=== PATIENT | female | born 1960 | race Caucasian/White ===

== ENCOUNTER 2019-09-13 17:55 | Observation (INO) | payer MEDICARE, MEDICAID ==
[2019-09-13] MEDS ORDERED: Sodium Chloride 0.9% 10 ML Syringe FLUSH PRN (18:02)
[2019-09-13] MEDS ORDERED: Levalbuterol HCl 1.25 MG/3 ML Neb NEB PRN (18:19)
[2019-09-13] MEDS ORDERED: Atropine 0.1 MG/ML 10 ML Syringe IVPUSH PRN (18:21)
[2019-09-13] MEDS ORDERED: Lidocaine 2% 100 MG/5 ML Syringe IVPUSH PRN (18:21)
[2019-09-13] MEDS ORDERED: Nitroglycerin 0.4 MG Tab.SL SL PRN (18:21)
[2019-09-13] MEDS ORDERED: EPINEPHrine 1:10,000 1 MG/10 ML Syringe IVPUSH PRN (18:21)
[2019-09-13] MEDS ORDERED: Rivaroxaban 10 MG Tab PO SCH (18:30)
[2019-09-13] MEDS ORDERED: Nystatin Crm 15 GM Tube TOP PRN (18:55)
[2019-09-13] MEDS ORDERED: Omeprazole 20 MG Cap.CR PO SCH (19:00)
[2019-09-13] MEDS: Rivaroxaban 10 MG Tab PO SCH (19:32)
[2019-09-13] MEDS: Gabapentin 100 MG Cap PO SCH (19:33)
[2019-09-13] MEDS: Metoprolol Succinate 50 MG Tab.ER PO SCH (19:33)
[2019-09-13] MEDS: atorvaSTATin 40 MG Tab PO SCH (20:55)
[2019-09-13] MEDS: Baclofen 10 MG Tab PO SCH (20:55)
[2019-09-13] MEDS: Sertraline 50 MG Tab PO SCH (20:55)
[2019-09-13] MEDS: Melatonin 3 MG Tab PO PRN (20:56)
[2019-09-13] MEDS: Albuterol 8 GM Inhaler INH PRN (21:17)
[2019-09-13] MEDS ORDERED: Magnesium Oxide 500 MG Tab PO ONE (21:47)
[2019-09-14] MEDS: Albuterol 8 GM Inhaler INH PRN (06:33)
[2019-09-14] MEDS: Gabapentin 100 MG Cap PO SCH ×2 (07:23→17:38)
[2019-09-14] MEDS: Omeprazole 20 MG Cap.CR PO SCH (07:23)
[2019-09-14 07:57] LABS: ANION GAP 19.7 mmol/L (5-15)
[2019-09-14] MEDS: Baclofen 10 MG Tab PO SCH ×2 (08:16→21:05)
[2019-09-14] MEDS ORDERED: Nitrofurantoin Macrocrystal 50 MG Cap PO SCH (09:00)
--- NOTE | 2019-09-14 11:09 | PCM.PN ---
- General Info Date of Service: 09/14/19 Functional Status: Reports: Tolerating Diet, Incentive Spirometry. Denies: Ambulating, New Symptoms - Review of Systems General: Denies: Fever, Weakness, Fatigue HEENT: Denies: Sore Throat Pulmonary: Reports: Shortness of Breath, Cough. Denies: Sputum Cardiovascular: Reports: Dyspnea on Exertion. Denies: Palpitations, Orthopnea, PND Gastrointestinal: Reports: No Symptoms Genitourinary: Reports: Flank Pain. Denies: Dysuria, Frequency, Burning Musculoskeletal: Reports: No Symptoms Skin: Reports: No Symptoms Neurological: Reports: No Symptoms Psychiatric: Reports: No Symptoms - Patient Data Vitals - Most Recent: Last Vital Signs Temp 97.2 F 09/14/19 06:53 Pulse 61 09/14/19 06:53 Resp 20 09/14/19 06:53 BP 109/73 09/14/19 06:53 Pulse Ox 94 L 09/14/19 06:53 Weight - Most Recent: 229 lb 14.4 oz I&O - Last 24 Hours: Intake & Output 09/13/19 09/14/19 09/14/19 22:59 06:59 14:59 Intake Total 400 250 Output Total 200 Balance 200 250 Lab Results Last 24 Hours: Laboratory Results - last 24 hr 09/13/19 09/13/19 09/13/19 Range/Units 17:45 17:45 20:05 WBC (5.00-10.00) 10^3/uL RBC (3.80-5.50) 10^6/uL Hgb (12.0-16.0) g/dL Hct (37.0-47.0) % MCV (82.0-92.0) fL MCH (27.0-31.0) pg MCHC (32.0-36.0) g/dL RDW (11.5-14.5) % Plt Count (150-400) 10^3/uL MPV (7.4-10.4) fL Immature Gran % (Auto) (0.0-5.0) % Neut % (Auto) (50.0-70.0) % Lymph % (Auto) (20.0-40.0) % [place] % (Auto) (2.0-8.0) % Eos % (Auto) (1.0-3.0) % Baso % (Auto) (0.0-1.0) % Immature Gran # (Auto) (0.00-0.50) 10^3/uL Neut # (Auto) (2.50-7.00) 10^3/uL Lymph # (Auto) (1.00-4.00) 10^3/uL [place] # (Auto) (0.10-0.80) 10^3/uL Eos # (Auto) (0.10-0.30) 10^3/uL Baso # (Auto) (0.00-0.10) 10^3/uL Sodium (136-145) mmol/L Potassium (3.3-5.3) mmol/L Chloride (98-115) mmol/L Carbon Dioxide (21.0-32.0) mmol/L Anion Gap (5-15) mmol/L BUN (6-25) mg/dL Creatinine (0.51-1.17) mg/dL Est Cr Clr Drug Dosing mL/min Estimated GFR (MDRD) mL/min Glucose (75 - 99) mg/dL Calcium (8.7-10.3) mg/dL Magnesium 1.4 L (1.8-2.4) mg/dL TSH, Ultra Sensitive 2.690 (0.340-4.820) uIU/mL Specimen Type Urinvoid Urine Color Yellow (YELLOW) Urine Appearance Turbid H (CLEAR) Urine pH 6.0 (5.0-9.0) Ur Specific Turner 1.020 (1.005-1.030) Urine Protein Trace H (NEGATIVE) mg/dL Urine Glucose (UA) Negative (NEGATIVE) mg/dL Urine Ketones Negative (NEGATIVE) mg/dL Urine Occult Blood Negative (NEGATIVE) Urine Nitrite Negative (NEGATIVE) Urine Bilirubin Negative (NEGATIVE) Urine Urobilinogen 0.2 (0.2-1.0) E.U./dL Ur Leukocyte Esterase Small H (NEGATIVE) Urine RBC 0-5 (0-5) /HPF Urine WBC 10-20 H (0-5) /HPF Ur Epithelial Cells Many H /LPF Urine Bacteria Moderate H (NONE TO FEW) /HPF 09/14/19 09/14/19 Range/Units 07:10 07:10 WBC 15.71 H (5.00-10.00) 10^3/uL RBC 3.56 L (3.80-5.50) 10^6/uL Hgb 11.1 L (12.0-16.0) g/dL Hct 33.7 L (37.0-47.0) % MCV 94.7 H (82.0-92.0) fL MCH 31.2 H (27.0-31.0) pg MCHC 32.9 (32.0-36.0) g/dL RDW 12.9 (11.5-14.5) % Plt Count 251 (150-400) 10^3/uL MPV 11.1 H (7.4-10.4) fL Immature Gran % (Auto) 0.4 (0.0-5.0) % Neut % (Auto) 76.2 H (50.0-70.0) % Lymph % (Auto) 14.1 L (20.0-40.0) % [place] % (Auto) 8.3 H (2.0-8.0) % Eos % (Auto) 0.7 L (1.0-3.0) % Baso % (Auto) 0.3 (0.0-1.0) % Immature Gran # (Auto) 0.06 (0.00-0.50) 10^3/uL Neut # (Auto) 11.97 H (2.50-7.00) 10^3/uL Lymph # (Auto) 2.22 (1.00-4.00) 10^3/uL [place] # (Auto) 1.31 H (0.10-0.80) 10^3/uL Eos # (Auto) 0.11 (0.10-0.30) 10^3/uL Baso # (Auto) 0.04 (0.00-0.10) 10^3/uL Sodium 144 (136-145) mmol/L Potassium 4.1 (3.3-5.3) mmol/L Chloride 110 (98-115) mmol/L Carbon Dioxide 18.4 L (21.0-32.0) mmol/L Anion Gap 19.7 H (5-15) mmol/L BUN 40 H (6-25) mg/dL Creatinine 1.46 H (0.51-1.17) mg/dL Est Cr Clr Drug Dosing 34.94 mL/min Estimated GFR (MDRD) 36 mL/min Glucose 96 (75 - 99) mg/dL Calcium 8.5 L (8.7-10.3) mg/dL Magnesium (1.8-2.4) mg/dL TSH, Ultra Sensitive (0.340-4.820) uIU/mL Specimen Type Urine Color (YELLOW) Urine Appearance (CLEAR) Urine pH (5.0-9.0) Ur Specific Turner (1.005-1.030) Urine Protein (NEGATIVE) mg/dL Urine Glucose (UA) (NEGATIVE) mg/dL Urine Ketones (NEGATIVE) mg/dL Urine Occult Blood (NEGATIVE) Urine Nitrite (NEGATIVE) Urine Bilirubin (NEGATIVE) Urine Urobilinogen (0.2-1.0) E.U./dL Ur Leukocyte Esterase (NEGATIVE) Urine RBC (0-5) /HPF Urine WBC (0-5) /HPF Ur Epithelial Cells /LPF Urine Bacteria (NONE TO FEW) /HPF Med Orders - Current: Current Medications Acetaminophen (Tylenol Extra Strength) 1,000 mg PO DAILY PRN PRN Reason: Pain Albuterol (Ventolin Hfa) 0 gm INH Q4H PRN PRN Reason: Shortness of Breath Last Admin: 09/14/19 06:33 Dose: 2 puff Atorvastatin Calcium (Lipitor) 40 mg PO BEDTIME [facility] Last Admin: 09/13/19 20:55 Dose: 40 mg Atropine Sulfate (Atropine 0.1 Mg/Ml) 0 mg IVPUSH ASDIRECTED PRN PRN Reason: Heart. Baclofen (Lioresal) 10 mg PO BID [facility] Last Admin: 09/14/19 08:16 Dose: 10 mg Dipyridamole (Dipyridamole) 75 mg PO TID [facility] Last Admin: 09/14/19 08:16 Dose: 75 mg Epinephrine HCl (Epinephrine 1:10,000) 1 mg IVPUSH ASDIRECTED PRN PRN Reason: Heart. Gabapentin (Neurontin) 100 mg PO 0800 [facility] Last Admin: 09/14/19 07:23 Dose: 100 mg Gabapentin (Neurontin) 200 mg PO 1800 [facility] Last Admin: 09/13/19 19:33 Dose: 200 mg Levalbuterol HCl (Xopenex) 1.25 mg NEB TID PRN PRN Reason: Cough Lidocaine HCl (Xylocaine 2%) 0 mg IVPUSH ASDIRECTED PRN PRN Reason: Heart. Melatonin (Melatonin) 3 mg PO BEDTIME PRN PRN Reason: Insomnia Last Admin: 09/13/19 20:56 Dose: 3 mg Metoprolol Succinate (Toprol Xl) 50 mg PO DAILY@1700 [facility] Nitrofurantoin Macrocrystals (Macrodantin) 50 mg PO Q2D [facility] Last Admin: 09/14/19 10:08 Dose: 50 mg Nitroglycerin (Nitrostat) 0.4 mg SL ASDIRECTED PRN PRN Reason: Heart. Nystatin (Nystatin Crm) 0 gm TOP BID PRN PRN Reason: Itching Last Admin: 09/13/19 21:16 Dose: 1 applic Omeprazole (Omeprazole) 20 mg PO ACBREAKFAST [facility] Last Admin: 09/14/19 07:23 Dose: 20 mg Rivaroxaban (Xarelto) 20 mg PO DAILY@1800 [facility] Last Admin: 09/13/19 19:32 Dose: 20 mg Sertraline HCl (Zoloft) 50 mg PO BEDTIME [facility] Last Admin: 09/13/19 20:55 Dose: 50 mg Sodium Chloride (Saline Flush) 10 ml FLUSH Q8HR PRN PRN Reason: keep vein open Discontinued Medications Magnesium Oxide (Magnesium Oxide) 500 mg PO ONETIME ONE Stop: 09/13/19 21:48 Last Admin: 09/13/19 22:38 Dose: 500 mg Metoprolol Succinate (Toprol Xl) 50 mg PO DAILY [facility] Last Admin: 09/13/19 19:33 Dose: 50 mg Omeprazole (Omeprazole) 20 mg PO BIDAC [facility] Last Admin: 09/13/19 19:33 Dose: 20 mg - Exam Quality Assessment: DVT Prophylaxis. No: Supplemental Oxygen General: Alert, Oriented, Cooperative, No Acute Distress Neck: No JVD Lungs: Rhonchi, Wheezing Cardiovascular: Regular Rate, Regular Rhythm, No Murmurs. No: Irregular Rhythm , Tachycardia, Gallops GI/Abdominal Exam: No: Distended Back Exam: No: CVA Tenderness (L), CVA Tenderness (R) Extremities: No Pedal Edema, Normal Capillary Refill Skin: Dry Neurological: No New Focal Deficit Psy/Mental Status: Alert, Normal Affect Sepsis Event Note - Evaluation Sepsis Screening Result: No Definite Risk - Focused Exam Vital Signs: Vital Signs Temp Pulse Resp BP BP Pulse Ox Pulse Ox 03/04/20 06:53 97.2 F 61 20 109/73 94 L 09/14/19 06:33 68 95 09/14/19 06:31 95 09/14/19 03:00 97.1 F 68 20 113/67 94 L 09/13/19 22:50 97.2 F 71 20 98/65 94 L Date Exam was Performed: 09/14/19 Time Exam was Performed: 15:10 - Problem List Review Problem List Initiated/Reviewed/Updated: Yes - My Orders Last 24 Hours: My Active Orders 09/13/19 19:00 Rivaroxaban [Xarelto] 20 mg PO DAILY@1800 09/13/19 21:05 CULTURE URINE [RM] Routine 09/14/19 07:00 RT Incentive Spirometry [RC] Q1HWA 09/14/19 07:15 Communication Order [RC] 0900,2100 09/14/19 17:00 Metoprolol Succinate [Toprol XL] 50 mg PO DAILY@1700 - Plan Plan:: History summary 59-year-old female admitted to the hospital by Mary Martinez NP outlying [facility] due to new onset atrial fibrillation with RVR. She was following up from a pneumonia that was diagnosed on 09/06/2019 she had completed a course of antibiotics of doxycycline however she had little improvement in her symptoms. When she was evaluated at the [facility] she had shortness of breath, however no fever. Found to be in atrial fibrillation with RVR ~140-160s. Was admitted for initial rate control and anticoagulation therapy. 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 She is on prophylactic nitrofurantoin chronic UTIs Clinic clinical work-up/findings/hospital course Soon after admission and prior to any intervention patient spontaneously converted to sinus rhythm, changed orders to Toprol 50 mg p.o. daily, overnight tele reviewed HR 60's few PAC/PVCs. Magesium mildly sub-therapeutic, magnesium oxide given, factor Xa inhibitor started on admission Primary hospital problems --Atrial fibrillation, paroxysmal, CHADS-VASC 4/5 with concomitant modifiable risks of HTN, obesity, infection, smoking, along with possible HF as contibutory ; NSR now, Toprol 50mg daily. Plan to send to cardiology as she is good candidate for rhythm control strategy. --Hypomagnesiumia, likely PPI induced, reduce PPI to QOD on discharge, p.o. magnesium supplement --Pneumonia, CAP, completed abx course; will review o/p cxr from [place] yesterday --Tobacco dependency, current smoker, ~20 carlota/year; refusing replacment, resp c/ s for cessation counseling. --Possible cardiac myopathy due to edema, sob, equivoccal BNP levels however will consider underylying pulm dz to account for bnp Chronic/stable problems --HTN, taking lisinopril 5mg daily. --HLD, Statin --GERD: PPI --Localized edema in the left lower extremity and takes spiranolactone 25mg daily --Low back and chronic SI joint pain: Baclofen 10mg twice daily, gabapentin 100mg in the AM and 200mg in the PM, acetaminophen 1000mg daily --Depression, SSRI --UTI prophylaxis: Nitrofurantoin 50mg every other day Disposition/overall plan --Continue observation, telemetry,--ambulate aggressively in halls today at least 4x, document HR burden/tolerance --Continue Xa inhibitor--and on discharge. Educate Patient hospital video/ education regarding high risk medication --EKG for any a flutter A. fib breakthrough --Respiratory therapy for smoking cessation education, --Urine culture Discharge planning --Discussed with patient regarding very good candidate for catheter-based AV ablation with subsequent/AICD placement for A. fib cure especially if ECHO demonstrates myopathy. However at this time will need intense ongoing PCP management to reduce Afib, modifiable risk factors i.e. obesity, heart failure, infection, smoking, HTN, --Nursing staff: Education regarding A. fib, high risk medications --Resp therapy to provide smoking cessation counselling. --Ambulate on floor 4x today notify provider for any tachycardia/A. fib --Echocardiogram as outpatient, --Cardiology/EP consultation outpatient. NURSING, Please keep reiterating my discussion with her during this hospitalization re cardiology referral to have initial discussion regarding afib and treatment options. Cardiology can assist with risk management stratification and to develop [id number] relationship is important for her as she may not be conducive to ablation at first visit.
[2019-09-14] MEDS: Metoprolol Succinate 50 MG Tab.ER PO SCH ×2 (11:17→16:55)
[2019-09-14] MEDS: Magnesium Oxide 500 MG Tab PO SCH ×2 (16:09→21:05)
[2019-09-14] MEDS: Levalbuterol HCl 1.25 MG/3 ML Neb NEB SCH (16:12)
[2019-09-14] MEDS: Acetaminophen 500 MG Tab PO PRN (16:55)
[2019-09-14] MEDS: Rivaroxaban 10 MG Tab PO SCH (17:38)
[2019-09-14] MEDS: atorvaSTATin 40 MG Tab PO SCH (21:05)
[2019-09-14] MEDS: Sertraline 50 MG Tab PO SCH (21:05)
[2019-09-14] MEDS: Melatonin 3 MG Tab PO PRN (21:05)
[2019-09-15] MEDS: Albuterol 8 GM Inhaler INH PRN (06:57)
[2019-09-15] MEDS: Gabapentin 100 MG Cap PO SCH ×2 (07:38→17:21)
[2019-09-15] MEDS: Omeprazole 20 MG Cap.CR PO SCH (07:38)
[2019-09-15] MEDS: Baclofen 10 MG Tab PO SCH ×2 (08:07→22:45)
[2019-09-15] MEDS: Magnesium Oxide 500 MG Tab PO SCH ×2 (08:09→22:52)
--- NOTE | 2019-09-15 09:33 | PCM.PN ---
- General Info Date of Service: 09/15/19 Functional Status: Reports: Pain Controlled, Tolerating Diet, Ambulating, Incentive Spirometry (1000 cc ICS Mk demonstration) - Review of Systems General: Denies: Fever, Weakness, Fatigue, Malaise, Chills Pulmonary: Reports: Cough, Wheezing (Mild wheezing however nearing her morning baseline). Denies: Sputum Cardiovascular: Denies: Dyspnea on Exertion, Edema Gastrointestinal: Denies: Decreased Appetite Genitourinary: Denies: Dysuria Skin: Reports: No Symptoms Neurological: Reports: Pre-Existing Deficit. Denies: Gait Disturbance Psychiatric: Denies: Confusion, Agitation, Cravings (Denies any tobacco craving) - Patient Data Vitals - Most Recent: Last Vital Signs Temp 97.0 F 09/15/19 07:00 Pulse 67 09/15/19 07:00 Resp 20 09/15/19 07:00 BP 120/76 09/15/19 07:00 Pulse Ox 98 09/15/19 07:00 Weight - Most Recent: 229 lb 14.4 oz I&O - Last 24 Hours: Intake & Output 09/14/19 09/15/19 09/15/19 22:59 06:59 14:59 Intake Total 900 200 Balance 900 200 Lab Results Last 24 Hours: Laboratory Results - last 24 hr 09/13/19 09/13/19 09/15/19 Range/Units 17:30 17:30 09:05 WBC 15.18 H (5.00-10.00) 10^3/uL RBC 3.81 (3.80-5.50) 10^6/uL Hgb 11.7 L (12.0-16.0) g/dL Hct 36.2 L (37.0-47.0) % MCV 95.0 H (82.0-92.0) fL MCH 30.7 (27.0-31.0) pg MCHC 32.3 (32.0-36.0) g/dL RDW 12.9 (11.5-14.5) % Plt Count 284 (150-400) 10^3/uL MPV 10.8 H (7.4-10.4) fL Immature Gran % (Auto) 0.4 (0.0-5.0) % Neut % (Auto) 81.5 H (50.0-70.0) % Lymph % (Auto) 11.8 L (20.0-40.0) % [place] % (Auto) 5.5 (2.0-8.0) % Eos % (Auto) 0.5 L (1.0-3.0) % Baso % (Auto) 0.3 (0.0-1.0) % Immature Gran # (Auto) 0.06 (0.00-0.50) 10^3/uL Neut # (Auto) 12.38 H (2.50-7.00) 10^3/uL Lymph # (Auto) 1.79 (1.00-4.00) 10^3/uL [place] # (Auto) 0.83 H (0.10-0.80) 10^3/uL Eos # (Auto) 0.08 L (0.10-0.30) 10^3/uL Baso # (Auto) 0.04 (0.00-0.10) 10^3/uL Magnesium 1.4 L (1.8-2.4) mg/dL TSH, Ultra Sensitive 2.690 (0.340-4.820) uIU/mL Med Orders - Current: Current Medications Acetaminophen (Tylenol Extra Strength) 1,000 mg PO DAILY PRN PRN Reason: Pain Last Admin: 09/14/19 16:55 Dose: 1,000 mg Albuterol (Ventolin Hfa) 0 gm INH Q4H PRN PRN Reason: Shortness of Breath Last Admin: 09/15/19 06:57 Dose: 2 puff Atorvastatin Calcium (Lipitor) 40 mg PO BEDTIME [facility] Last Admin: 09/14/19 21:05 Dose: 40 mg Atropine Sulfate (Atropine 0.1 Mg/Ml) 0 mg IVPUSH ASDIRECTED PRN PRN Reason: Heart. Baclofen (Lioresal) 10 mg PO BID [facility] Last Admin: 09/15/19 08:07 Dose: 10 mg Dipyridamole (Dipyridamole) 75 mg PO TID [facility] Last Admin: 09/15/19 08:07 Dose: 75 mg Epinephrine HCl (Epinephrine 1:10,000) 1 mg IVPUSH ASDIRECTED PRN PRN Reason: Heart. Gabapentin (Neurontin) 100 mg PO 0800 [facility] Last Admin: 09/15/19 07:38 Dose: 100 mg Gabapentin (Neurontin) 200 mg PO 1800 [facility] Last Admin: 09/14/19 17:38 Dose: 200 mg Levalbuterol HCl (Xopenex) 1.25 mg NEB TID [facility] Last Admin: 09/14/19 16:12 Dose: 1.25 mg Lidocaine HCl (Xylocaine 2%) 0 mg IVPUSH ASDIRECTED PRN PRN Reason: Heart. Magnesium Oxide (Magnesium Oxide) 500 mg PO BID [facility] Last Admin: 09/15/19 08:09 Dose: 500 mg Melatonin (Melatonin) 3 mg PO BEDTIME PRN PRN Reason: Insomnia Last Admin: 09/14/19 21:05 Dose: 3 mg Metoprolol Succinate (Toprol Xl) 50 mg PO DAILY@1700 [facility] Last Admin: 09/14/19 16:55 Dose: 50 mg Nitrofurantoin Macrocrystals (Macrodantin) 50 mg PO Q2D [facility] Last Admin: 09/14/19 10:08 Dose: 50 mg Nitroglycerin (Nitrostat) 0.4 mg SL ASDIRECTED PRN PRN Reason: Heart. Nystatin (Nystatin Crm) 0 gm TOP BID PRN PRN Reason: Itching Last Admin: 09/13/19 21:16 Dose: 1 applic Omeprazole (Omeprazole) 20 mg PO ACBREAKFAST [facility] Last Admin: 09/15/19 07:38 Dose: 20 mg Rivaroxaban (Xarelto) 20 mg PO DAILY@1800 [facility] Last Admin: 09/14/19 17:38 Dose: 20 mg Sertraline HCl (Zoloft) 50 mg PO BEDTIME [facility] Last Admin: 09/14/19 21:05 Dose: 50 mg Sodium Chloride (Saline Flush) 10 ml FLUSH Q8HR PRN PRN Reason: keep vein open Discontinued Medications Levalbuterol HCl (Xopenex) 1.25 mg NEB TID PRN PRN Reason: Cough Magnesium Oxide (Magnesium Oxide) 500 mg PO ONETIME ONE Stop: 09/13/19 21:48 Last Admin: 09/13/19 22:38 Dose: 500 mg Metoprolol Succinate (Toprol Xl) 50 mg PO DAILY [facility] Last Admin: 09/14/19 11:17 Dose: Not Given Omeprazole (Omeprazole) 20 mg PO BIDAC [facility] Last Admin: 09/13/19 19:33 Dose: 20 mg - Exam Quality Assessment: No: Supplemental Oxygen General: Alert, Oriented, Cooperative, No Acute Distress Neck: No JVD Lungs: Rhonchi Cardiovascular: Regular Rate, Regular Rhythm, No Murmurs. No: Irregular Rhythm , Bradycardia, Tachycardia GI/Abdominal Exam: Soft (Female) Exam: Deferred Back Exam: No: CVA Tenderness (L), CVA Tenderness (R) Extremities: No Pedal Edema Peripheral Pulses: 2+: Radial (L), Radial (R) Skin: Warm, Dry, Intact Neurological: No New Focal Deficit Psy/Mental Status: Alert, Normal Affect, Normal Mood Sepsis Event Note - Evaluation Sepsis Screening Result: No Definite Risk - Focused Exam Vital Signs: Vital Signs Temp Pulse Resp BP Pulse Ox Pulse Ox 09/15/19 07:00 97.0 F 67 20 120/76 98 09/15/19 06:57 60 96 09/15/19 03:00 97.5 F 58 L 20 118/72 95 09/14/19 23:00 97.0 F 58 L 20 95/55 L 94 L Date Exam was Performed: 09/15/19 Time Exam was Performed: 09:21 - Problem List Review Problem List Initiated/Reviewed/Updated: Yes - My Orders Last 24 Hours: My Active Orders 09/14/19 14:25 levalbuterol HCL [Xopenex] 1.25 mg NEB TID 09/14/19 14:30 Magnesium Oxide 500 mg PO BID 09/14/19 17:00 Metoprolol Succinate [Toprol XL] 50 mg PO DAILY@1700 09/15/19 09:05 BASIC METABOLIC PANEL,BMP [CHEM] Routine 09/15/19 09:10 SEDIMENTATION RATE MANUAL [HEME] Routine - Plan Plan:: History summary 59-year-old female admitted to the hospital by Mary Martinez NP outlying [facility] due to new onset atrial fibrillation with RVR. She was following up from a pneumonia that was diagnosed on 09/06/2019 she had completed a course of antibiotics of doxycycline however she had little improvement in her symptoms. When she was evaluated at the [facility] she had shortness of breath, however no fever. Found to be in atrial fibrillation with RVR ~140-160s. Was admitted for initial rate control and anticoagulation therapy. 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 She is on prophylactic nitrofurantoin chronic UTIs Clinic clinical work-up/findings/hospital course Soon after admission and prior to any intervention patient spontaneously converted to sinus rhythm, changed orders to Toprol 50 mg p.o. daily, overnight tele reviewed HR 60's few PAC/PVCs. Magnesium mildly sub-therapeutic, magnesium oxide given, factor Xa inhibitor started on admission Primary hospital problems --Atrial fibrillation, paroxysmal, CHADS-VASC 4/5 with concomitant modifiable risks of HTN, obesity, infection, smoking, along with possible HF as contibutory ; NSR now, Toprol 50mg daily. Plan to send to cardiology as she is good candidate for rhythm control strategy. --Hypomagnesiumia, likely PPI induced, reduce PPI to QOD on discharge, p.o. magnesium supplement --Pneumonia, CAP, completed short abx course however likely MDRO, will start Levaquin 2/2 rising neutrophilia; --Tobacco dependency, current smoker, ~20 carlota/year; refusing replacment, resp c/ s for cessation counseling, precontemplation phase of change --Possible cardiac myopathy due to edema, sob, equivoccal BNP levels however will consider underylying pulm dz to account for bnp Chronic/stable problems --HTN, taking lisinopril 5mg daily. --HLD, Statin --GERD: PPI --Localized edema in the left lower extremity and takes spiranolactone 25mg daily --Low back and chronic SI joint pain: Baclofen 10mg twice daily, gabapentin 100mg in the AM and 200mg in the PM, acetaminophen 1000mg daily --Depression, SSRI --UTI prophylaxis: Nitrofurantoin 50mg every other day, hold for now Disposition/overall plan --Continue observation, telemetry,--ambulate aggressively in halls today at least 4x, document HR burden/tolerance --Continue Xa inhibitor--and on discharge. Nursing did great job educating patient regarding medication and disease process --EKG for any a flutter A. fib breakthrough --Respiratory therapy for smoking cessation education, precontemplation phase of change --Urine culture, obtained Discharge planning --Discussed with patient regarding very good candidate for catheter-based AV ablation with subsequent/AICD placement for A. fib cure especially if ECHO demonstrates myopathy. However at this time will need intense ongoing PCP management to reduce Afib, modifiable risk factors i.e. obesity, heart failure, infection, smoking, HTN, --Nursing staff: Very good job on educating patient --Resp therapy to provide smoking cessation counselling. --Ambulate on floor 4x today notify provider for any tachycardia/A. fib --Echocardiogram as outpatient, --Cardiology/EP consultation outpatient. --Spouse on rounds this morning case discussed he agrees with plan --Anticipate discharge in a.m. On discharge --reduce PPI to QOD on discharge --Continue Xarelto --Cardiogram --Cardiology referral --[facility]
[2019-09-15 09:35] LABS: ANION GAP 20.5 mmol/L (5-15)
[2019-09-15] MEDS: Levofloxacin 500 MG Tab PO SCH (10:13)
[2019-09-15] MEDS: Levalbuterol HCl 1.25 MG/3 ML Neb NEB SCH ×3 (10:20→22:56)
[2019-09-15] MEDS: Acetaminophen 500 MG Tab PO PRN (13:23)
[2019-09-15] MEDS: Ondansetron 4 MG Tab.DIS PO SCH ×2 (15:44→21:22)
[2019-09-15] MEDS: Metoprolol Succinate 50 MG Tab.ER PO SCH (17:20)
[2019-09-15] MEDS: Rivaroxaban 10 MG Tab PO SCH (17:21)
[2019-09-15] MEDS ORDERED: Famotidine 20 MG Tab PO ONE (22:38)
[2019-09-15] MEDS: atorvaSTATin 40 MG Tab PO SCH (22:45)
[2019-09-15] MEDS: Sertraline 50 MG Tab PO SCH (22:45)
[2019-09-16] MEDS: Ondansetron 4 MG Tab.DIS PO SCH ×2 (02:47→08:08)
[2019-09-16 07:02] VITALS: BP 133/67
[2019-09-16] MEDS: Gabapentin 100 MG Cap PO SCH (07:58)
[2019-09-16] MEDS: Omeprazole 20 MG Cap.CR PO SCH (07:58)
[2019-09-16] MEDS: Magnesium Oxide 500 MG Tab PO SCH (08:05)
[2019-09-16] MEDS: Baclofen 10 MG Tab PO SCH (08:05)
[2019-09-16] MEDS: Acetaminophen 500 MG Tab PO PRN (08:08)
[2019-09-16] MEDS: Levofloxacin 500 MG Tab PO SCH (08:35)
[2019-09-16] MEDS: Levalbuterol HCl 1.25 MG/3 ML Neb NEB SCH (09:28)
[2019-09-16 10:42] VITALS: PULSE 68
--- NOTE | 2019-09-16 10:50 | PCM.DCSUM1 ---
Discharge Summary - Hospital Course Diagnosis: Stroke: No - Discharge Data Discharge Date: 09/16/19 Discharge Disposition: Home, Self-Care 01 Condition: Good - Referral to Home Health Primary Care Physician: Mary Martinez NP - Patient Instructions Diet: Usual Diet as Tolerated Activity: As Tolerated, Cough & Deep Breathe Driving: Do Not Drive Showering/Bathing: May Shower Notify Provider of: Fever Other/Special Instructions: --Use your incentive spirometer (beathing device) every 2 hours. Medication changes/adjustments. --Xarelto 20 mg daily at 6:00 ( newly added). --Magnesium oxide 500 mg tablet daily (newly added). -- Chlortrimazole vaginal cream bedtime 7 days (newly added). --Levaquin 750 mg daily x5 more days (newly added). --Metoprolol succinate 50 mg tablet every day (newly added). --Stop aspirin. --Stop your Aldactone for now. --Do not take your Macrodantin for UTI until follow-up. --Omeprazole/prilosec changed to every other day--. --continue on your other medications. - Discharge Plan *PRESCRIPTION DRUG MONITORING PROGRAM REVIEWED*: Not Applicable *COPY OF PRESCRIPTION DRUG MONITORING REPORT IN PATIENT [place]: Not Applicable Prescriptions/Med Rec: Clotrimazole [Clotrimazole 1%] 5 gm VAG BEDTIME 7 Days #1 tube Magnesium Oxide 500 mg PO DAILY #90 tablet Metoprolol Succinate [Toprol XL 50mg] 50 mg PO DAILY@1700 #30 tab.er Rivaroxaban [Xarelto] 20 mg PO DAILY@1800 #30 tablet Home Medications: Home Meds Acetaminophen 1,000 mg PO DAILY PRN 09/13/19 [History] Albuterol Sulfate [Albuterol Sulfate Hfa] 2 puff IH Q4H PRN 09/13/19 [History] Ascorbic Acid [Vitamin C] 500 mg PO DAILY 09/13/19 [History] Baclofen 10 mg PO BID 09/13/19 [History] Cholecalciferol (Vitamin D3) [Vitamin D3] 400 unit PO DAILY 09/13/19 [History] Dipyridamole 75 mg PO TID 09/13/19 [History] Doxylamine Succinate [Unisom] 25 mg PO BEDTIME 09/13/19 [History] Gabapentin [Neurontin] 100 mg PO 0800 09/13/19 [History] Gabapentin [Neurontin] 200 mg PO 1800 09/13/19 [History] Lisinopril [Zestril] 5 mg PO DAILY 09/13/19 [History] Nystatin [Nystatin Crm] 1 applic TOP BID PRN 09/13/19 [History] Sertraline [Zoloft] 50 mg PO BEDTIME 09/13/19 [History] Sodium Bicarbonate 325 mg PO BID 09/13/19 [History] atorvaSTATin [Lipitor] 40 mg PO BEDTIME 09/13/19 [History] nitrofurantoin macrocrystaL [Macrodantin] 50 mg PO Q2D 09/13/19 [History] Clotrimazole [Clotrimazole 1%] 5 gm VAG BEDTIME 7 Days #1 tube 09/16/19 [Rx] Magnesium Oxide 500 mg PO DAILY #90 tablet 09/16/19 [Rx] Metoprolol Succinate [Toprol XL 50mg] 50 mg PO DAILY@1700 #30 tab.er 09/16/19 [ Rx] Omeprazole 20 mg PO Q48H #30 09/16/19 [Rx] Rivaroxaban [Xarelto] 20 mg PO DAILY@1800 #30 tablet 09/16/19 [Rx] Referrals: Mary Martinez NP [Primary Care Provider] - (Early next week or anybody of her choice) - Discharge Summary/Plan Comment DC Time >30 min.: Yes Discharge Summary/Plan Comment: --Use your incentive spirometer (beathing device) every 2 hours. Medication changes/adjustments --Xarelto 20 mg daily at 6:00 (newly added) --Magnesium oxide 500 mg tablet daily (newly added) --Chlortrimazole vaginal cream bedtime 7 days (newly added) --Levaquin 750 mg daily x5 more days (newly added) --Metoprolol succinate 50 mg tablet every day (newly added) --Stop aspirin --Stop your Aldactone for now --Do not take your Macrodantin for UTI until follow-up --Omeprazole/prilosec changed to every other day --continue on your other medications - Patient Data Vitals - Most Recent: Last Vital Signs Temp 98.2 F 03/06/20 07:00 Pulse 68 09/16/19 09:28 Resp 20 09/16/19 07:00 BP 133/67 09/16/19 07:00 Pulse Ox 96 09/16/19 09:28 Weight - Most Recent: 229 lb 14.4 oz I&O - Last 24 hours: Intake & Output 09/15/19 09/16/19 09/16/19 22:59 06:59 14:59 Intake Total 300 100 Output Total 200 Balance 100 100 JORDI Results - Last 24 hrs: Microbiology 09/13/19 21:05 Urine Culture - Preliminary Urine, Voided Med Orders - Current: Current Medications Acetaminophen (Tylenol Extra Strength) 1,000 mg PO DAILY PRN PRN Reason: Pain Last Admin: 09/16/19 08:08 Dose: 1,000 mg Albuterol (Ventolin Hfa) 0 gm INH Q4H PRN PRN Reason: Shortness of Breath Last Admin: 09/15/19 06:57 Dose: 2 puff Atorvastatin Calcium (Lipitor) 40 mg PO BEDTIME [facility] Last Admin: 09/15/19 22:45 Dose: Not Given Atropine Sulfate (Atropine 0.1 Mg/Ml) 0 mg IVPUSH ASDIRECTED PRN PRN Reason: Heart. Baclofen (Lioresal) 10 mg PO BID [facility] Last Admin: 09/16/19 08:05 Dose: 10 mg Dipyridamole (Dipyridamole) 75 mg PO TID [facility] Last Admin: 09/16/19 08:05 Dose: 75 mg Epinephrine HCl (Epinephrine 1:10,000) 1 mg IVPUSH ASDIRECTED PRN PRN Reason: Heart. Gabapentin (Neurontin) 100 mg PO 0800 [facility] Last Admin: 09/16/19 07:58 Dose: 100 mg Gabapentin (Neurontin) 200 mg PO 1800 [facility] Last Admin: 09/15/19 17:21 Dose: 200 mg Levalbuterol HCl (Xopenex) 1.25 mg NEB TID [facility] Last Admin: 09/16/19 09:28 Dose: 1.25 mg Levofloxacin (Levaquin) 500 mg PO Q24H [facility] Last Admin: 09/16/19 08:35 Dose: 500 mg Lidocaine HCl (Xylocaine 2%) 0 mg IVPUSH ASDIRECTED PRN PRN Reason: Heart. Magnesium Oxide (Magnesium Oxide) 500 mg PO BID [facility] Last Admin: 09/16/19 08:05 Dose: 500 mg Melatonin (Melatonin) 3 mg PO BEDTIME PRN PRN Reason: Insomnia Last Admin: 09/14/19 21:05 Dose: 3 mg Metoprolol Succinate (Toprol Xl) 50 mg PO DAILY@1700 [facility] Last Admin: 09/15/19 17:20 Dose: 50 mg Nitrofurantoin Macrocrystals (Macrodantin) 50 mg PO Q2D [facility] Last Admin: 09/14/19 10:08 Dose: 50 mg Nitroglycerin (Nitrostat) 0.4 mg SL ASDIRECTED PRN PRN Reason: Heart. Nystatin (Nystatin Crm) 0 gm TOP BID PRN PRN Reason: Itching Last Admin: 09/13/19 21:16 Dose: 1 applic Omeprazole (Omeprazole) 20 mg PO ACBREAKFAST [facility] Last Admin: 09/16/19 07:58 Dose: 20 mg Ondansetron HCl (Zofran Odt) 4 mg PO Q6H [facility] Last Admin: 09/16/19 08:08 Dose: 4 mg Rivaroxaban (Xarelto) 20 mg PO DAILY@1800 [facility] Last Admin: 09/15/19 17:21 Dose: 20 mg Sertraline HCl (Zoloft) 50 mg PO BEDTIME [facility] Last Admin: 09/15/19 22:45 Dose: Not Given Sodium Chloride (Saline Flush) 10 ml FLUSH Q8HR PRN PRN Reason: keep vein open Discontinued Medications Famotidine (Pepcid) 20 mg PO ONETIME ONE Stop: 09/15/19 22:39 Last Admin: 09/15/19 22:52 Dose: 20 mg Levalbuterol HCl (Xopenex) 1.25 mg NEB TID PRN PRN Reason: Cough Magnesium Oxide (Magnesium Oxide) 500 mg PO ONETIME ONE Stop: 09/13/19 21:48 Last Admin: 09/13/19 22:38 Dose: 500 mg Metoprolol Succinate (Toprol Xl) 50 mg PO DAILY [facility] Last Admin: 09/14/19 11:17 Dose: Not Given Omeprazole (Omeprazole) 20 mg PO BIDAC [facility] Last Admin: 09/13/19 19:33 Dose: 20 mg
== END 2019-09-16 13:00 | disposition home or self-care (01) ==
LOC: INTOOBSV 17:55 → KA.MS 17:55
PROVIDERS: ADMIT Nurse Practitioner Family; ATTEND Nurse Practitioner Family
DX: I48.0 Paroxysmal atrial fibrillation (principal); I10 Essential (primary) hypertension; J16.8 Pneumonia due to other specified infectious organisms; E78.5 Hyperlipidemia, unspecified; K21.9 Gastro-esophageal reflux disease without esophagitis; M53.3 Sacrococcygeal disorders, not elsewhere classified; M54.5 Low back pain; G89.29 Other chronic pain; F32.9 Major depressive disorder, single episode, unspecified; E83.42 Hypomagnesemia; I69.352 Hemiplegia and hemiparesis following cerebral infarction affecting left dominant side; F17.210 Nicotine dependence, cigarettes, uncomplicated; Z79.899 Other long term (current) drug therapy
CPT/HCPCS: 36415; 80048; 81001; 83735; 84443; 85025; 85651; 87086; 87088; 87186; 93005; 94640; A9270-GY; G0378; J7612-GY

== ENCOUNTER 2019-09-20 13:22 | Emergency (ER) | payer MEDICARE, MEDICAID ==
[2019-09-20] MEDS ORDERED: Sodium Chloride 0.9% 10 ML Syringe FLUSH PRN (13:28)
[2019-09-20] MEDS ORDERED: Sodium Chloride 0.9% 500 ML IV SCH ×2 (13:30→16:00)
--- NOTE | 2019-09-20 13:41 | EDM.PDOC ---
ED HPI GENERAL MEDICAL PROBLEM - General Chief Complaint: General Stated Complaint: Hypotension Time Seen by Provider: 09/20/19 13:25 Source of Information: Reports: Patient, Provider History Limitations: Reports: No Limitations - History of Present Illness INITIAL COMMENTS - FREE TEXT/NARRATIVE: Patient is a 59-year-old female who presents to the emergency department via EMS from the [facility] with a complaint of hypotension. Patient was seen at the [facility] for follow-up and was found to be hypotensive with a white blood cell count of 20,000. Renal function was also worsening. Patient was discharged from [facility] on September 15. Patient had a one-week stay for pneumonia. Patient is currently on Levaquin. Upon presentation, patient had a blood pressure of 60s over 40s with a heart rate in the 70s. Patient was alert , awake, oriented, and nontoxic appearing. Patient denies chest pain, shortness of breath, headache, nausea, vomiting, diarrhea, abdominal pain, dysuria, or out of country travel. Onset: Today Duration: Other (Unsure) Severity: Moderate Improves with: Reports: None Worsens with: Reports: None Associated Symptoms: Denies: Chest Pain, Cough, cough w sputum, Diaphoresis, Fever/Chills, Nausea/Vomiting, Shortness of Breath Hip Pain Score (Numeric/FACES): 6 - Related Data Allergies Allergy/AdvReac Type Severity Reaction Status Date / Time miconazole Allergy Itching Verified 09/20/19 15:11 Home Meds: Home Meds Acetaminophen 1,000 mg PO DAILY PRN 09/13/19 [History] Albuterol Sulfate [Albuterol Sulfate Hfa] 2 puff IH Q4H PRN 09/13/19 [History] Ascorbic Acid [Vitamin C] 500 mg PO DAILY 09/13/19 [History] Baclofen 10 mg PO BID 09/13/19 [History] Cholecalciferol (Vitamin D3) [Vitamin D3] 400 unit PO DAILY 09/13/19 [History] Dipyridamole 75 mg PO TID 09/13/19 [History] Doxylamine Succinate [Unisom] 25 mg PO BEDTIME 09/13/19 [History] Gabapentin [Neurontin] 100 mg PO 0800 09/13/19 [History] Gabapentin [Neurontin] 200 mg PO 1800 09/13/19 [History] Lisinopril [Zestril] 5 mg PO DAILY 09/13/19 [History] Nystatin [Nystatin Crm] 1 applic TOP BID PRN 09/13/19 [History] Sertraline [Zoloft] 50 mg PO BEDTIME 09/13/19 [History] Sodium Bicarbonate 325 mg PO BID 09/13/19 [History] atorvaSTATin [Lipitor] 40 mg PO BEDTIME 09/13/19 [History] nitrofurantoin macrocrystaL [Macrodantin] 50 mg PO Q2D 09/13/19 [History] Magnesium Oxide 500 mg PO DAILY #90 tablet 09/16/19 [Rx] Metoprolol Succinate [Toprol XL 50mg] 50 mg PO DAILY@1700 #30 tab.er 09/16/19 [ Rx] Rivaroxaban [Xarelto] 20 mg PO DAILY@1800 #30 tablet 09/16/19 [Rx] Clotrimazole [Clotrimazole 1%] 1 applic VAG BEDTIME 09/20/19 [History] Levofloxacin [Levaquin] 750 mg PO DAILY 09/20/19 [History] Omeprazole 20 mg PO BID 09/20/19 [History] Past Medical History Cardiovascular History: Reports: Afib, Heart Murmur, SOB on Exertion, Other ( See Below) Other Cardiovascular History: previous CVA Respiratory History: Reports: COPD Other Respiratory History: current resolving pneumonia Genitourinary History: Reports: Renal Calculus, Urinary Incontinence, UTI, Recurrent Musculoskeletal History: Reports: Arthritis Neurological History: Reports: CVA - Past Surgical History Cardiovascular Surgical History: Reports: None Respiratory Surgical History: Reports: None GI Surgical History: Reports: Hernia, Inguinal, Hernia Repair/Other Female Surgical History: Reports: Hysterectomy, Salpingo-Oophorectomy Neurological Surgical History: Reports: None Musculoskeletal Surgical History: Reports: None Social & Family History - Family History Family Medical History: Unobtainable - Caffeine Use Caffeine Use: Reports: Other Other Caffeine Use: Vibarin-pt report 400mg in the morning ED ROS GENERAL - Review of Systems Review Of Systems: Comprehensive ROS is negative, except as noted in HPI. Constitutional: Reports: No Symptoms HEENT: Reports: No Symptoms Respiratory: Reports: No Symptoms Cardiovascular: Reports: No Symptoms Endocrine: Reports: No Symptoms GI/Abdominal: Reports: No Symptoms : Reports: No Symptoms Musculoskeletal: Reports: No Symptoms Skin: Reports: No Symptoms Neurological: Reports: No Symptoms Psychiatric: Reports: No Symptoms Hematologic/Lymphatic: Reports: No Symptoms Immunologic: Reports: No Symptoms ED EXAM, GENERAL - Physical Exam Exam: See Below Exam Limited By: No Limitations General Appearance: Alert, WD/WN, No Apparent Distress Eye Exam: Bilateral Eye: Normal Inspection Nose: Normal Inspection, Normal Mucosa, No Blood Throat/Mouth: Normal Inspection, Normal Oropharynx, No Airway Compromise Head: Atraumatic, Normocephalic Neck: Normal Inspection, Supple Respiratory/Chest: No Respiratory Distress, Wheezing (Expiratory) Cardiovascular: Normal Peripheral Pulses, No Murmur, Irregularly Irregular ( Underlying atrial fibrillation) GI/Abdominal: Normal Bowel Sounds, Soft, Non-Tender Back Exam: Normal Inspection. No: CVA Tenderness (L), CVA Tenderness (R) Extremities: Normal Inspection, No Pedal Edema Neurological: Alert, Oriented, Normal Cognition Psychiatric: Normal Affect, Normal Mood Skin Exam: Warm, Dry, Intact, Normal Color, No Rash Lymphatic: No Adenopathy Course - Vital Signs Last Recorded V/S: Last Vital Signs Temp 97 F 09/20/19 13:34 Pulse 74 09/20/19 15:59 Resp 19 09/20/19 15:51 BP 91/61 09/20/19 15:51 Pulse Ox 98 09/20/19 15:51 - Orders/Labs/Meds Orders: Active Orders 24 hr Category Date Time Status RT Aerosol Therapy [RC] ASDIRECTED Care 09/20/19 15:45 Ordered CULTURE BLOOD [BC] Stat Lab 09/20/19 13:30 Ordered CULTURE BLOOD [BC] Stat Lab 09/20/19 13:30 Ordered UA W/MICROSCOPIC [URIN] Stat Lab 09/20/19 13:29 Ordered Sodium Chloride 0.9% [Normal Saline] 1,000 ml Med 09/20/19 16:00 Active IV ASDIRECTED Sodium Chloride 0.9% [Normal Saline] 500 ml Med 09/20/19 13:30 Ordered IV .BOLUS Sodium Chloride 0.9% [Normal Saline] 500 ml Med 09/20/19 16:00 Active IV ASDIRECTED Sodium Chloride 0.9% [Saline Flush] Med 09/20/19 13:28 Ordered 10 ml FLUSH Q8HR PRN Blood Culture x2 Reflex Set [OM.PC] Stat Oth 09/20/19 13:29 Ordered Isolation [COMM] Routine Oth 09/20/19 13:26 Ordered Saline Lock Insert [OM.PC] Stat Oth 09/20/19 13:29 Ordered Severe Sepsis Onset Time [OM.PC] Stat Oth 09/20/19 13:29 Ordered Medication Orders Sodium Chloride (Normal Saline) 500 mls @ 500 mls/hr IV .BOLUS OMAYRA Last Admin: 09/20/19 13:30 Dose: 500 mls/hr Sodium Chloride (Normal Saline) 500 mls @ 999 mls/hr IV ASDIRECTED OMAYRA Last Admin: 09/20/19 16:03 Dose: 999 mls/hr Sodium Chloride (Normal Saline) 1,000 mls @ 125 mls/hr IV ASDIRECTED OMAYRA Sodium Chloride (Saline Flush) 10 ml FLUSH Q8HR PRN PRN Reason: keep vein open Labs: Laboratory Tests 09/20/19 09/20/19 Range/Units 13:12 14:00 Lactic Acid 1.0 (0.4-2.0) mmol/L B-Natriuretic Peptide 323 H (0-100) pg/mL Meds: Medications Generic Name Dose Route Start Last Admin Trade Name Freq PRN Reason Stop Dose Admin Sodium Chloride 500 mls @ 500 mls/hr 09/20/19 13:30 09/20/19 13:30 Normal Saline IV 500 mls/hr .BOLUS OMAYRA Administration Sodium Chloride 500 mls @ 999 mls/hr 09/20/19 16:00 09/20/19 16:03 Normal Saline IV 999 mls/hr ASDIRECTED OMAYRA Administration Sodium Chloride 1,000 mls @ 125 mls/hr 09/20/19 16:00 Normal Saline IV ASDIRECTED OMAYRA Sodium Chloride 10 ml 09/20/19 13:28 Saline Flush FLUSH Q8HR PRN keep vein open Discontinued Medications Generic Name Dose Route Start Last Admin Trade Name Freq PRN Reason Stop Dose Admin Albuterol/Ipratropium 3 ml 09/20/19 15:45 09/20/19 15:50 Duoneb 3.0-0.5 Mg/3 Ml NEB 09/20/19 15:46 3 ml ONETIME ONE Administration - Radiology Interpretation Free Text/Narrative:: Chest x-ray shows left lower lobe infiltrate - Re-Assessments/Exams Free Text/Narrative Re-Assessment/Exam: 09/20/19 16:05 Patient afebrile, vital signs stable, nontoxic appearing, denies chest pain. Discussed case with Dr. Bryan who would like the patient transferred. Contacted [place] [facility] call and spoke to Dr. Díaz, hospitalist at [facility]. She will accept transfer of care. Patient will be transferred via ground ACLS. Departure - Departure Time of Disposition: 16:10 Disposition: DC/Tfer to [facility] 02 Condition: Fair Clinical Impression: Pneumonia, Renal insufficiency Afib Qualifiers: Atrial fibrillation type: unspecified Qualified Code(s): I48.91 - Unspecified atrial fibrillation Hypotension Qualifiers: Hypotension type: unspecified hypotension type Qualified Code(s): I95.9 - Hypotension, unspecified - Discharge Information Forms: ED Department Discharge Sepsis Event Note - Focused Exam Vital Signs: Vital Signs Temp Pulse Resp BP Pulse Ox 09/20/19 15:59 74 09/20/19 15:51 67 19 91/61 98 09/20/19 14:52 84/57 L 09/20/19 14:28 70 20 115/68 98 09/20/19 13:34 97 F 73 19 83/45 L 96 09/20/19 13:30 71 19 69/45 L 96 Date Exam was Performed: 09/20/19 Time Exam was Performed: 16:05 - My Orders Last 24 Hours: My Active Orders 09/20/19 13:26 Isolation [COMM] Routine 09/20/19 13:28 Sodium Chloride 0.9% [Saline Flush] 10 ml FLUSH Q8HR PRN 09/20/19 13:29 UA W/MICROSCOPIC [URIN] Stat Blood Culture x2 Reflex Set [OM.PC] Stat Saline Lock Insert [OM.PC] Stat Severe Sepsis Onset Time [OM.PC] Stat 09/20/19 13:30 CULTURE BLOOD [BC] Stat CULTURE BLOOD [BC] Stat Sodium Chloride 0.9% [Normal Saline] 500 ml IV .BOLUS 09/20/19 15:45 RT Aerosol Therapy [RC] ASDIRECTED 09/20/19 16:00 Sodium Chloride 0.9% [Normal Saline] 1,000 ml IV ASDIRECTED Sodium Chloride 0.9% [Normal Saline] 500 ml IV ASDIRECTED - Assessment/Plan Last 24 Hours: My Active Orders 09/20/19 13:26 Isolation [COMM] Routine 09/20/19 13:28 Sodium Chloride 0.9% [Saline Flush] 10 ml FLUSH Q8HR PRN 09/20/19 13:29 UA W/MICROSCOPIC [URIN] Stat Blood Culture x2 Reflex Set [OM.PC] Stat Saline Lock Insert [OM.PC] Stat Severe Sepsis Onset Time [OM.PC] Stat 09/20/19 13:30 CULTURE BLOOD [BC] Stat CULTURE BLOOD [BC] Stat Sodium Chloride 0.9% [Normal Saline] 500 ml IV .BOLUS 09/20/19 15:45 RT Aerosol Therapy [RC] ASDIRECTED 09/20/19 16:00 Sodium Chloride 0.9% [Normal Saline] 1,000 ml IV ASDIRECTED Sodium Chloride 0.9% [Normal Saline] 500 ml IV ASDIRECTED Assessment:: Hypotension, pneumonia, renal insufficiency Plan: Transfer to [facility]
--- NOTE | 2019-09-20 14:36 | CR ---
[id number] RAD/RAD Chest PA And Lateral EXAM: FRONTAL AND LATERAL CHEST INDICATION: PNEUMONIA. COMPARISON: April 27, 2008. DISCUSSION: Possible early lower lobe infiltrates best seen on the lateral view. Cardiomegaly with no current evidence of congestive heart failure. Stable mild elevation of the right hemidiaphragm. Resolution of infiltrate seen on the 2007 study. IMPRESSION: 1. Possible early left lower lobe infiltrates. Eddie Webster MD 09/20/19 1064 Thank you for allowing us to participate in the care of your patient.
[2019-09-20] MEDS ORDERED: Albuterol/Ipratropium 3.0-0.5 MG/3 ML Neb Soln NEB ONE (15:45)
[2019-09-20] MEDS ORDERED: Sodium Chloride 0.9% 1,000 ML IV SCH (16:00)
== END 2019-09-20 17:00 ==
LOC: KA.ED 13:22
DX: I95.9 Hypotension, unspecified (principal); J18.9 Pneumonia, unspecified organism; N28.9 Disorder of kidney and ureter, unspecified; J44.9 Chronic obstructive pulmonary disease, unspecified; I48.91 Unspecified atrial fibrillation; Z79.899 Other long term (current) drug therapy; Z88.8 Allergy status to other drugs, medicaments and biological substances; Z86.73 Personal history of transient ischemic attack (TIA), and cerebral infarction without residual deficits
CPT/HCPCS: 36415; 71046; 83605; 83880; 87040; 87804; 96360; 96361; 99284; 99285; J7030; J7040; J7620-GY